=== PATIENT | female | born 1995 | race Caucasian/White ===

== ENCOUNTER 2022-02-01 00:08 | Emergency (ER) | payer SELFPAY ==
--- NOTE | ~2022-02-01 | CT_ITS ---
EXAMINATION: CT abdomen pelvis wo con DATE: 02/01/2022 01:47 INDICATION: Suprapubic pain. TECHNIQUE: Computed tomography (CT) of the abdomen and pelvis was performed without intravenous contr ast. The dose-length product was 1226.92 mGy-cm. Automated exposure control and iterative reconstruct ion technique were employed. COMPARISON: None. FINDINGS: Lung bases are unremarkable. No significant pleural or pericardial effusion. There is a 3 m m nonobstructing right renal stone. There is mild right hydronephrosis. There is a 2-3 mm stone near the expected location of the UVJ. Nonobstructing bowel gas pattern. Small fat-containing umbilical he rnia. The liver, spleen, pancreas, adrenal glands and left kidney are unremarkable. Normal appendix. There are a few nonenlarged mesenteric lymph nodes, likely reactive. Gallbladder is present. No free air or free fluid. IMPRESSION: 1. Distal ureteral stone near the UVJ measuring 2-3 mm with mild hydronephrosis. 2: Nonobstructing right nephrolithiasis. Reviewed, dictated and finalized at location A. IMPRESSION: 1. Distal ureteral stone near the UVJ measuring 2-3 mm with mild hydronephrosis . 2: Nonobstructing right nephrolithiasis.
[2022-02-01 00:10] VITALS: BP 150/106; PULSE 107; RESP 18; TEMP 36.1; O2SAT 99
[2022-02-01 00:42] LABS: Appearance Urine Clear (Clear); Bilirubin Urine Negative (Negative); Blood Urine 2+ (Negative); Color Urine Yellow (Yellow); Glucose Urine UA Negative (Negative); Ketones Urine Trace mg/dL (Negative); Leukocyte Esterase Ur Negative LEU/UL (Negative); Nitrate Urine Negative (Negative); Protein Urine Negative (Negative); Specific Grav Ur 1.025 (1.001-1.035); pH Urine 6.5 (5.0-9.0)
[2022-02-01 00:51] LABS: Bacteria Urine Trace /hpf; Mucus Urine Rare /lpf; RBC Urine 21-50 /hpf (0-2); Squamous Epithelial Cell Urine Many /hpf (Few); WBC Urine 0-3 /hpf
[2022-02-01 01:01] LABS: Add Urine Microscopic? YES
[2022-02-01] MEDS: KETOROLAC 30 MG/ML VIAL (*BKC) IV PUSH (01:31)
[2022-02-01] MEDS: ONDANSETRON INJ 4 MG/2 ML VIAL IV PUSH (01:31)
[2022-02-01] MEDS: SODIUM CHLORIDE 0.9% IV 1,000 ML 999 ML IV CONT (01:32)
--- NOTE | 2022-02-01 02:39 | ED.FEMALEGU ---
HPI - Female Genitourinary General Chief complaint: Urogenital-Female Stated complaint: uti Time Seen by Provider: 02/01/22 01:11 History of Present Illness HPI Narrative: Patient is a 26-year-old female who presents ER with concerns for possible UTI. Reports burning urination and suprapubic discomfort for 2 days. Occasional nausea. No fevers or chills or sweats. Has had pain moving into her low back. No history of kidney stones. Denies hematuria. Related Data Allergies Allergy/AdvReac Type Severity Reaction Status Date / Time No Known Allergies Allergy Verified 02/01/22 01:30 Review of Systems Review of Systems: All systems reviewed & are unremarkable except as noted in HPI and below Gastrointestinal: Gastrointestinal: Reports abdominal pain, Denies constipation, Reports nausea and Denies vomiting Genitourinary: Genitourinary: Denies hematuria, Reports nocturia, Reports dysuria and Denies flank pain Musculoskeletal: Musculoskeletal: Reports back pain Neurologic: Denies focal weakness and Denies numbness PMFSH Past Medical History Medical History (Updated 02/01/22 @ 03:40 by Siddharth Lora MD) Healthy female adult Surgical History Surgical History (Updated 02/01/22 @ 02:41 by Siddharth Lora MD) No history of previous surgery Social History Social History (Updated 02/01/22 @ 02:41 by Siddharth Lora MD) Smoking status: Never smoker Exam Narrative: GENERAL: Uncomfortable-appearing, well-nourished, and in no acute distress. HEAD: Normocephalic, atraumatic. CHEST: Clear to auscultation. No respiratory distress. HEART: Regular rate and rhythm. Normal peripheral pulses. ABDOMEN: Soft, suprapubic discomfort without guarding or rebound, nondistended. Back: No reproducible midline tenderness. No CVA tenderness. EXTREMITIES: Normal range of motion. No edema. SKIN: Warm, dry, no rash. NEURO: Alert and oriented x3. PSYCH: Normal mood and affect. Course Course Emergency Course: Informed of results. Discharge home. Vital Signs Vital signs: Vital Signs Temperature 96.9 F L 02/01/22 00:10 Pulse Rate 107 H 02/01/22 00:10 Respiratory Rate 18 02/01/22 00:10 Blood Pressure 150/106 H 02/01/22 00:10 Pulse Oximetry 99 02/01/22 00:10 Oxygen Delivery Room Air 02/01/22 00:10 Temperature 96.9 F L 02/01/22 00:10 Pulse Rate 107 H 02/01/22 00:10 Respiratory Rate 18 02/01/22 00:10 Blood Pressure 150/106 H 02/01/22 00:10 Pulse Oximetry 99 02/01/22 00:10 Oxygen Delivery Room Air 02/01/22 00:10 MDM - Female Genitourinary Lab Data Labs: Lab Results 02/01/22 Range/Units 00:36 Urine Color Yellow (Yellow) Urine Appearance Clear (Clear) Urine pH 6.5 (5.0-9.0) Ur Specific [place] 1.025 (1.001-1.035) Urine Protein Negative (Negative) mg/dL Urine Glucose (UA) Negative (Negative) mg/dL Urine Ketones Trace (Negative) mg/dL Ur Blood (Man) 2+ H (Negative) Urine Nitrate Negative (Negative) Urine Bilirubin Negative (Negative) Urine Urobilinogen 1.0 (<2.0) mg/dL Leukocyte Esterase Rfl Negative (Negative) WARD/UL Urine RBC 21-50 H (0-2) /hpf Urine WBC 0-3 /hpf Ur Squamous Epith Cells Many H (Few) /hpf Urine Bacteria Trace /hpf Urine Mucus Rare /lpf UCG Bedside Result Negative Reference Range: Negative Imaging Data Radiologist's impression: CT abdomen pelvis without contrast: There is a 2 mm calculus within the urinary bladder adjacent to the right UVJ with mild hydronephrosis and hydroureter. Right nephrolithiasis. Discharge Plan Discharge Clinical Impression: Ureterolithiasis Patient Disposition: Home, Self-Care Condition: Stable Instructions: Kidney Stones (ED), How to Strain Your Urine (ED) Additional Instructions: Return the ER if you have worsening pain, you cannot keep down food or water, you have fever over 1
[2022-02-01 04:12] VITALS: BP 126/78; PULSE 105; RESP 16; O2SAT 98
== END 2022-02-01 04:15 | disposition home or self-care (01) ==
PROVIDERS: Physician Assistant; Emergency Provider Emergency Medicine
DX: N13.2 Hydronephrosis with renal and ureteral calculous obstruction (principal)
CPT/HCPCS: 74176; 81001; 81025; 96361; 96374; 96375; 99284; J1885; J2405; J7030

== ENCOUNTER 2024-06-17 03:23 | Emergency (ER) | payer OTHER, SELFPAY ==
--- NOTE | ~2024-06-17 | XR_ITS ---
Portable chest x-ray Comparison: None Clinical History: Chest pain Findings: Lungs are clear, without focal consolidation or pleural effusion. Cardiomediastinal silho uette is unremarkable. Bones and soft tissues are unremarkable. Impression: Normal chest. Reviewed, dictated and finalized at location . Impression: Normal chest.
[2024-06-17 03:25] VITALS: BP 126/78; PULSE 102; RESP 14; TEMP 36.4; O2SAT 98
--- NOTE | 2024-06-17 03:36 | ECG_ITS ---
Test Date: 2024-06-17 04:04:46 Measurements Intervals [place] Rate: 96 P: 20 UT: 140 QRS: 13 QRSD: 92 T: -5 QT: 336 QTc: 425 Interpretive Statements SINUS RHYTHM POSSIBLE LEFT ATRIAL ENLARGEMENT [-0.1mV P-WAVE IN V1/V2] No previous ECG available for comparison Electronically Signed On 06-17-2024 12:24:10 CDT by Kalpana Rodriguez M.D.
[2024-06-17] MEDS: MAG HYDROX/AL HYDROX/SIMETH 30 ML UDC PO (03:49)
[2024-06-17] MEDS: ONDANSETRON HCL ODT 4 MG TABLET PO (03:49)
[2024-06-17] MEDS: PANTOPRAZOLE 40 MG TABLET PO (03:50)
[2024-06-17] MEDS: FAMOTIDINE 20 MG TABLET PO (03:50)
[2024-06-17 04:06] VITALS: PULSE 94
[2024-06-17 04:07] VITALS: BP 122/95; PULSE 91; RESP 25; TEMP 36.6; O2SAT 97
--- NOTE | 2024-06-17 04:09 | ED.GENADULT ---
HPI - General Adult General Chief complaint: Unspecified Stated complaint: Acid Reflux attack Time Seen by Provider: 06/17/24 03:36 History of Present Illness HPI narrative: 28-year-old female presenting to the emergency department with a chief complaint of acid reflux. Patient states she woke up with severe burning pain in her esophagus and upper airway. She states that she thinks she might have aspirated a little bit of acid as she was having significant burning in her throat and difficulty with breathing. She has been dealing with acid reflux for quite some time and usually responds well to Pepcid or Tums. She took 4 Tums prior to arrival which did alleviate most of her symptoms but now she is complaining of a burning taste and burning sensation in her throat with pain on ambulation. Denies any coughing or vomiting during any of this. She was otherwise in her normal state of health. Denies any chest pain, active nausea vomiting, headache, vision change, back pain, fatigue. Related Data Allergies Allergy/AdvReac Type Severity Reaction Status Date / Time No Known Allergies Allergy Verified 02/01/22 01:30 Review of Systems Review of Systems: As reviewed above in HPI [facility] Past Medical History Medical History Healthy female adult Surgical History Surgical History No history of previous surgery Social History Social History Smoking status: Never smoker Exam Narrative: GENERAL: [Well-appearing, well-nourished, and in no acute distress.] HEAD: [Normocephalic, atraumatic.] EYES: [PERRLA and EOMI.] ENT: Nares clear, no rhinorrhea or epistaxis. Mucous membranes moist. no posterior or pharyngeal swelling or erythema, exudates. NECK: Supple. no crepitus with palpation of the neck or anterior chest wall. CHEST: [Clear to auscultation. No respiratory distress.] HEART: [Regular rate and rhythm]. No murmur heard. [Normal peripheral pulses.] ABDOMEN: [Soft, nondistended], [nontender], [No rigidity or guarding] EXTREMITIES: Normal range of motion. [No edema.] SKIN: Warm, dry, no rash. NEURO: [No focal deficits]. Alert and oriented [x3.] PSYCH: [Normal mood and affect.] Course Vital Signs Vital signs: Vital Signs Temperature 36.4 C 06/17/24 03:25 Pulse Rate 102 H 06/17/24 03:25 Respiratory Rate 14 06/17/24 03:25 Blood Pressure 126/78 06/17/24 03:25 Pulse Oximetry 98 06/17/24 03:25 Oxygen Delivery Room Air 06/17/24 03:25 Temperature 37.0 C 06/17/24 04:38 Pulse Rate 81 06/17/24 04:38 Respiratory Rate 19 06/17/24 04:38 Blood Pressure 122/90 06/17/24 04:38 Pulse Oximetry 97 06/17/24 04:38 Oxygen Delivery Room Air 06/17/24 03:25 Medical Decision Making MDM Narrative Medical decision making narrative: 28-year-old female with history of GERD presenting with worsening GERD like symptoms today. She did have nauseousness without vomiting and felt like she was having potential aspiration of some of the bile/ acid in her throat. She states she takes Tums with some alleviated most of her symptoms prior to arrival. Vital signs reassuring, no concerning physical exam features on examination. chest x-ray and EKG were obtained as patient had triage complaint of chest discomfort. She was given Maalox, Pepcid, Zofran and Protonix here in the emergency department as combination therapy for GERD. Will be re-evaluated after treatment to see if she has any improvement. patient's chest x-ray was independently reviewed and I do not see any kind of evidence of injury, pneumothorax, pneumomediastinum any consolidations. Patient was re-evaluated had complete symptomatic resolution while here in the emergency department. Patient is stable for discharge home and was given return precautions as w
[2024-06-17 04:38] VITALS: BP 122/90; PULSE 81; RESP 19; TEMP 37; O2SAT 97
== END 2024-06-17 05:09 | disposition home or self-care (01) ==
PROVIDERS: Emergency Provider Student in an Organized Health Care Education/Training Program
DX: K21.9 Gastro-esophageal reflux disease without esophagitis (principal)
CPT/HCPCS: 71045; 93005; 99284; A9270